=== PATIENT | male | born 1985 | race Caucasian/White ===

== ENCOUNTER 2017-06-03 16:56 | Emergency (ER) | payer MEDICAID, OTHER, SELFPAY ==
[~2017-06-03] VITALS: Ht 193 cm; Wt 103.9 kg
[2017-06-03 17:04] VITALS: BP 131/87
== END 2017-06-03 18:56 | disposition home or self-care (01) ==
LOC: ED 18:00
DX: H54.62 Unqualified visual loss, left eye, normal vision right eye (principal); H53.9 Unspecified visual disturbance
CPT/HCPCS: 99281